=== PATIENT | female | born 1985 ===

== ENCOUNTER 2018-11-11 08:40 | Emergency (ER) | payer OTHER ==
[~2018-11-11] VITALS: Ht 162.6 cm; Wt 77.1 kg
== END 2018-11-11 19:00 | disposition home or self-care (01) ==
LOC: ER 08:40
DX: K52.9 Noninfective gastroenteritis and colitis, unspecified (principal)

== ENCOUNTER 2019-05-01 10:53 | Outpatient (CLI) | payer OTHER | END 2019-05-01 15:00 | disposition home or self-care (01) | LOC: LAB SALUS 10:53 | DX: Z11.4 Encounter for screening for human immunodeficiency virus [HIV] (principal); Z12.11 Encounter for screening for malignant neoplasm of colon; Z72.51 High risk heterosexual behavior; Z11.3 Encounter for screening for infections with a predominantly sexual mode of transmission; Z13.1 Encounter for screening for diabetes mellitus; Z13.220 Encounter for screening for lipoid disorders ==